=== PATIENT | male | born 1995 | race Caucasian/White ===

== ENCOUNTER 2021-04-07 19:01 | Inpatient (IN) ==
[2021-04-07 20:10] LABS: Basophils % 0.8 %; Eosinophils # 0.2 K/mcL (0.0-0.6); Hematocrit 45.3 % (37.5-50.1); Immature Granulocytes % 0.2 % (0-4); Lymphocytes # 2.1 K/mcL (0.6-4.6); Mean Corpuscular HGB Conc 30.9 g/dL (31.6-35.5); Mean Corpuscular Hemoglobin 27.8 pg (28.0-33.3); Mean Corpuscular Volume 89.9 fL (83.0-100.0); Mean Platelet Volume 9.6 fL (9.4-12.4); Monocytes # 0.3 K/mcL (0.0-1.3); Monocytes % 6.2 %; Neutrophils # 2.5 K/mcL (1.6-8.9); Platelet Count 271 K/mcL (140-400); Red Blood Count 5.04 M/mcL (4.19-5.50); Red Cell Distribution Width 13.7 % (11.5-14.5); Segmented Neutrophils % 47.8 %; White Blood Count 5.2 K/mcL (4.3-11.1)
[2021-04-07 20:19] LABS: Bilirubin,Urine Negative (Negative); Blood,Urine Negative (Negative); Clarity,Urine Clear (Clear); Color,Urine Colorless (Yellow); Glucose,Urine (UA) Normal (Normal); Ketones,Urine Negative (Negative); Leukocyte Esterase,Urine Negative (Negative); Nitrite,Urine Negative (Negative); Protein,Urine Negative (Neg-Trace); Specific Gravity,Urine 1.008 (1.010-1.025); Urobilinogen,Urine Normal (Normal)
[2021-04-07 20:38] LABS: Acetaminophen < 10 mcg/mL (10-20); Alanine Aminotransferase 10 Units/L (7-52); Albumin/Globulin Ratio 1.7 (1.1-2.2); Alkaline Phosphatase 74 Units/L (34-104); Aspartate Amino Transferase 11 Units/L (13-39); BUN/Creatinine Ratio 13 (6-26); Bilirubin,Direct 0.1 mg/dL (0.0-0.2); Bilirubin,Indirect 0.2 mg/dL (0.0-1.0); Bilirubin,Total 0.3 mg/dL (0.3-1.0); Blood Urea Nitrogen 13 mg/dL (6-20); Calcium 8.9 mg/dL (8.6-10.3); Carbon Dioxide 26 mEq/L (23-29); Chloride 108 mEq/L (98-107); Ethanol < 10 mg/dL (Less than 10); Globulin 2.3 g/dL (2.4-3.5); Glucose 107 mg/dL (70-105); Osmolality,Calculated 291 (280-300); Potassium 3.5 mEq/L (3.5-5.1); Salicylate < 2.5 mg/dL (15.0-30.0); Sodium 140 mEq/L (136-145); Total Protein 6.3 g/dL (6.4-8.9); eGFR For African Americans > 60 (> 60); eGFR For Non-African Americans > 60 (> 60)
[2021-04-07 20:38] LABS: Amphetamine Screen,Urine Negative ng/mL (Cutoff=1000); Barbiturate Screen,Urine Negative ng/mL (Cutoff=200); Benzodiazepines Screen,Urine Negative ng/mL (Cutoff=200); Cannabinoid Screen,Urine Positive ng/mL (Cutoff = 50); Cocaine Screen,Urine Negative ng/mL (Cutoff= 300); Opiate Screen,Urine Negative ng/mL (Cutoff=300); Phencyclidine Screen,Urine Negative ng/mL (Cutoff=25)
[2021-04-07 23:50] LABS: Influenza A PCR Negative (Negative); Influenza B PCR Negative (Negative); Resp. Syncytial Virus PCR Negative (Negative)
[2021-04-07 23:51] LABS: SARS-CoV-2 by PCR (In House) Negative (Negative)
[2021-04-08] MEDS ORDERED: haloperidoL 5 MG TABLET PO PRN (00:13)
[2021-04-08] MEDS ORDERED: *HR* LORazepam 2 MG/ML VIAL IM PRN (00:13)
[2021-04-08] MEDS ORDERED: Haloperidol Lactate 5 MG/ML VIAL IM PRN (00:13)
[2021-04-08] MEDS ORDERED: Acetaminophen 325 MG TABLET PO PRN (00:13)
[2021-04-08] MEDS ORDERED: traZODone 50 MG TABLET PO PRN (00:13)
[2021-04-08] MEDS ORDERED: Ibuprofen 400 MG TABLET PO PRN (00:13)
[2021-04-08] MEDS ORDERED: *HR* LORazepam 1 MG TABLET PO PRN ×3 (00:24→00:39)
[2021-04-08] MEDS ORDERED: Td (TENIVAC) Vaccine 0.5 ML VIAL IM ONE (09:35)
[2021-04-08] MEDS ORDERED: MOM Conc 10 ML UD.LIQ PO PRN (09:35)
[2021-04-08] MEDS ORDERED: Mag Hydrox/Al Hydrox/Simeth 30 ML UDC PO PRN (09:35)
[2021-04-08] MEDS: Nicotine 21 MG PATCH.TD24 TD SCH (11:05)
[2021-04-08] MEDS: FLUoxetine 20 MG CAPSULE PO SCH (14:16)
[2021-04-08] MEDS: Mirtazapine 15 MG TABLET PO SCH (20:29)
[2021-04-08] MEDS: OLANZapine 10 MG TAB.RAPDIS PO SCH (20:29)
[2021-04-08] MEDS: hydrOXYzine pamoate 25 MG CAPSULE PO PRN (20:29)
[2021-04-09] MEDS: FLUoxetine 20 MG CAPSULE PO SCH (08:56)
[2021-04-09] MEDS: Nicotine 21 MG PATCH.TD24 TD SCH (08:56)
[2021-04-09] MEDS: hydrOXYzine pamoate 25 MG CAPSULE PO PRN (20:20)
[2021-04-09] MEDS: Mirtazapine 15 MG TABLET PO SCH (20:20)
[2021-04-09] MEDS: OLANZapine 10 MG TAB.RAPDIS PO SCH (20:20)
[2021-04-09] MEDS: traZODone 50 MG TABLET PO PRN (20:21)
[2021-04-10] MEDS: Nicotine 21 MG PATCH.TD24 TD SCH (09:21)
[2021-04-10] MEDS: FLUoxetine 20 MG CAPSULE PO SCH (09:22)
[2021-04-10] MEDS: hydrOXYzine pamoate 25 MG CAPSULE PO PRN (18:39)
[2021-04-10] MEDS: OLANZapine 10 MG TAB.RAPDIS PO SCH (20:27)
[2021-04-10] MEDS: traZODone 50 MG TABLET PO PRN (20:28)
[2021-04-10] MEDS: Mirtazapine 15 MG TABLET PO SCH (20:28)
[2021-04-10 20:55] VITALS: O2SAT 98
[2021-04-11] MEDS: Nicotine 21 MG PATCH.TD24 TD SCH (08:55)
[2021-04-11 08:56] VITALS: BP 129/82; PULSE 93; TEMP 97.8
[2021-04-11] MEDS: FLUoxetine 20 MG CAPSULE PO SCH (08:56)
== END 2021-04-11 11:45 | disposition other institution (70) | DRG 751 ==
LOC: EMEROOARM 19:01 → 1ANU 04-08 00:16 → SUATTDRO 04-08 00:16 → 1ANU 04-08 01:03
PROVIDERS: ADMIT Psychiatry & Neurology Psychiatry; ATTEND Psychiatry & Neurology Psychiatry